=== PATIENT | female | born 1965 | race African-American/Black ===

== ENCOUNTER 2016-06-08 19:36 | Emergency (ER) | payer MEDICAID ==
[~2016-06-08] VITALS: Ht 167.6 cm; Wt 89.8 kg
[2016-06-08 20:38] VITALS: BP 107/72
--- NOTE | 2016-06-08 20:47 | Emergency Room Report ---
History of Present Illness General Chief Complaint: Upper Respiratory Illness Source: Patient Present Illness HPI 51 YO Female Pt. presents to the ED c/o productive cough x 3 weeks with intermittent fevers/chills, unresponsive to OTC cough and cold medications. Pt. reports ill- contacts denies recent travels, patient states she is up-to-date with vaccinations. Denies ill contacts and nursing facility to hospitals. Patient denies cardiac history history of asthma or COPD patient does not smoke. She denies abdominal pain or rashes. Patient reports rib cage pain exacerbated upon coughing in addition to headache that is exacerbated only with coughing. Patient denies dizziness, photophobia, changes in vision or blurry vision. Denies CP, Palpitations, LOC, AMS, dizziness, Changes in Vision, Sensation, paresthesias, or a sudden severe headache. Allergies: Coded Allergies: PEANUT (Verified Allergy, Unknown, 06/08/16) Patient History Past Medical History: see triage record Past Surgical History: none Pertinent Family History: none Now: No Immunizations: UTD Reviewed Nursing Documentation: PMH: Agreed, PSxH: Agreed Nursing Documentation-PMH Hx Asthma: Yes Review of Systems All Other Systems: negative except mentioned in HPI Physical Exam Vital Signs Date Time Temp Pulse Resp B/P Pulse Ox O2 Delivery O2 Flow Rate FiO2 06/08/16 20:30 98.1 68 16 107/72 97 Room Air Sp02 EP Interpretation: reviewed, normal General Appearance: no apparent distress, alert, GCS 15, non-toxic Head: normocephalic, atraumatic Eyes: bilateral eye PERRL, bilateral eye normal inspection ENT: hearing grossly normal, normal pharynx, no angioedema, normal voice Neck: full range of motion, supple/symm/no masses Respiratory: chest non-tender, crackles - right sided basilar crackles , remaining lung feilds are WNL, speaking full sentences Cardiovascular #1: regular rate, rhythm, no edema Gastrointestinal: normal bowel sounds, non tender, soft, no guarding, no rebound Rectal: deferred Genitourinary: normal inspection, no CVA tenderness Musculoskeletal: back normal, gait/station normal, normal range of motion, non- tender, no calf tenderness Neurologic: alert, oriented x3, responsive, motor strength/tone normal, sensory intact, speech normal Psychiatric: judgement/insight normal, memory normal, mood/affect normal, no suicidal/homicidal ideation Skin: normal color, no rash, warm/dry, well hydrated Lymphatic: no adenopathy Medical Decision Making PA Attestation Dr. Olivas is my supervising Physician whom patient management has been discussed with. Diagnostic Impression: Primary Impression: Atypical pneumonia ER Course Pt. presents to the ED c/o productive cough x 3 weeks with intermittent fevers/ chills, unresponsive to OTC cough and cold medications. -no cardiac hx. Ddx considered but are not limited to URI, pneumonia, PE, strep pharyngitis, meningitis. Vital signs: Pt. is afebrile, the remaining VS are WNL H&PE are most consistent with URI suspicious for pneumonia due to unilateral basilar crackles on PE. ORDERS: none required at this time, the diagnosis is clinical ED INTERVENTIONS: None required at this time. DISCHARGE: At this time pt. is stable for d/c to home. Will provide printed patient care instructions, and any necessary prescriptions. Care plan and follow up instructions have been discussed with the patient prior to discharge. Last Vital Signs Date Time Temp Pulse Resp B/P Pulse Ox O2 Delivery O2 Flow Rate FiO2 06/08/16 20:30 98.1 68 16 107/72 97 Room Air Disposition: HOME, SELF-CARE Condition: Stable Scripts Azithromycin* (ZITHROMAX*) 250 Mg Tablet 250 MG ORAL DAILY, #6 TAB 0 Refills Take two tables once daily for 1 day, then one tablet once daily for 4 days. Prov: Marci Stewart.A. 06/08/16 Albuterol Sulfate* (ALBUTEROL SULFATE MDI*) 8.5 Gm Hfa.aer.ad 2 PUFF INH Q3H, #1 INH 0 Refills Prov: Marci Stewart P.A. 06/08/16 Guaifenesin (Guaifenesin) 1,200 Mg Tab.er.12h 1200 MG PO BID for 10 Days, #20 TAB Prov: Marci Stewart P.A. 06/08/16 Codeine/Promethazine Hcl* (PROMETHAZINE-CODEINE SYRUP*) 118 Ml Syrup 5 ML ORAL Q6H Y for For Cough, #118 ML 0 Refills Prov: Marci StewartAVic 06/08/16 Referrals: [facility],REFERRING (PCP) Patient Instructions: Upper Respiratory Infection, Adult Additional Instructions: Take medications as directed. Follow up with PCP in 3-5 days Return sooner to ED if new symptoms occur, or current symptoms become worse. Do not drink alcohol, drive, or operate heavy machinery while taking Cough Syrup as this may cause drowsiness. - Please note that this Emergency Department Report was dictated using [employer]ell[employer] executive software sales technology software, occasionally this can lead to erroneous entry secondary to interpretation by the dictation equipment. Marci Stewart Jun 08, 2016 20:47
[2016-06-08] MEDS ORDERED: PROMETHAZINE-C118 M1 ORAL (21:20)
[2016-06-08] MEDS ORDERED: ALBUTEROL SULF8.5 GM INH (21:20)
[2016-06-08] MEDS ORDERED: ZITHROMAX250 MG ORAL (21:20)
[2016-06-08] MEDS ORDERED: GUAIFENESIN1200 MG PO (21:20)
[2016-06-08 21:33] VITALS: BP 107/72
== END 2016-06-08 21:33 | disposition home or self-care (01) ==
LOC: EMR 20:30
DX: J18.9 Pneumonia, unspecified organism (principal); Z91.010 Allergy to peanuts
CPT/HCPCS: 99284

== ENCOUNTER 2016-07-10 19:08 | Emergency (ER) | payer MEDICAID ==
[~2016-07-10] VITALS: Ht 167.6 cm; Wt 90.7 kg
[~2016-07-10 19:08] MED LIST: ALBUTEROL SULF8.5 GM INH; GUAIFENESIN1200 MG PO; PROMETHAZINE-C118 M1 ORAL; ZITHROMAX250 MG ORAL
[2016-07-10 19:30] VITALS: BP 110/60
[2016-07-10] MEDS ORDERED: NORCO 5-325 TA1 EAC1 ORAL (20:03)
[2016-07-10] MEDS ORDERED: IBUPROFEN600 MG ORAL (20:03)
--- NOTE | 2016-07-11 09:38 | Diagnostic Imaging Report ---
Indication: PAIN Technique: XRAY FOOT MIN 3V LEFT Comparison: None. Findings: There is fracture of the first proximal phalanx with extension into the interphalangeal joint. There may also be a small fracture of the base of the first distal phalanx. The remainder of the bones are intact. Impression: Fracture of the distal in the first proximal phalanx with extension into the interphalangeal joint. Possible slight chip fracture of the base of the first distal phalanx.
--- NOTE | 2016-07-12 14:07 | Emergency Room Report ---
History of Present Illness General Chief Complaint: Lower Extremity Injury Source: Patient Present Illness HPI The patient is a 51-year-old female presenting for pain of the left foot which began today. The patient states that she dropped a can of food onto the foot. Pain is described as an 8/10 dull ache and does not radiate from the left foot. She denies prior injury to this area. Pain is worse with touch. She has not taken any medications. She denies any other symptoms including numbness or tingling Allergies: Coded Allergies: PEANUT (Verified Allergy, Unknown, 06/08/16) Patient History Past Medical History: see triage record Pertinent Family History: none Now: No Reviewed Nursing Documentation: PMH: Agreed, PSxH: Agreed Nursing Documentation-PMH Hx Asthma: Yes Review of Systems All Other Systems: negative except mentioned in HPI Physical Exam Vital Signs Date Time Temp Pulse Resp B/P Pulse Ox O2 Delivery O2 Flow Rate FiO2 07/10/16 19:16 97.9 77 15 106/57 96 Room Air Sp02 EP Interpretation: reviewed, normal General Appearance: no apparent distress, alert, GCS 15, non-toxic Head: normocephalic, atraumatic Eyes: bilateral eye PERRL, bilateral eye normal inspection ENT: hearing grossly normal, normal pharynx, no angioedema, normal voice Musculoskeletal: decreased range of motion - L 1st toe, swelling, tender - TTP over L 1st and 2nd toes Neurologic: alert, oriented x3, responsive, motor strength/tone normal, sensory intact, speech normal, abnormal gait Psychiatric: judgement/insight normal, memory normal, mood/affect normal, no suicidal/homicidal ideation Skin: normal color, no rash, warm/dry, well hydrated Medical Decision Making PA Attestation Dr. Rogers is my supervising physician. Patient management was discussed with my supervising physician Diagnostic Impression: Primary Impression: Toe fracture, left Qualified Codes: S92.405A - Nondisplaced unspecified fracture of left great toe, initial encounter for closed fracture ER Course The patient is a 51-year-old female presenting for left foot pain Ddx considered include but not limited to sprain/strain, fracture, contusion Physical exam: vitals WNL. NAD Left foot: There is tenderness to palpation over the first and second digits overlying swelling. No ecchymosis. Limited active range of motion with toe extension and flexion. Sensation intact Patient walks with antalgic gait X-ray of the foot shows a fracture of the first digit A leny tape splint is placed and the patient is given crutches. She is discharged home with a prescription for pain medication and will follow up with PMD. ER precautions given Other X-Ray Diagnostic Results Other X-Ray Diagnostic Results : X-Ray Ordered: L foot Date: Jul 10, 2016 EP Interpretation: Yes Findings: no dislocation, other - fracture Number of Views: 3 PA Scribe Text I am acting as scribe for my supervising physician. My supervising physician's interpretation of the L foot xrays are there is a fracture of the 1st toe Radiology report: Fracture of the distal in the first proximal phalanx with extension into the interphalangeal joint. Possible slight chip fracture of the base of the first distal phalanx. Last Vital Signs Date Time Temp Pulse Resp B/P Pulse Ox O2 Delivery O2 Flow Rate FiO2 07/10/16 19:30 98.0 89 15 110/60 99 Room Air Status: improved Disposition: HOME, SELF-CARE Condition: Improved Scripts Hydrocodone Bit/Acetaminophen 5-325* (NORCO 5-325 TABLET*) 1 Each Tablet 1 TAB ORAL Q6HR Y for For Pain, #10 TAB Prov: CHANO SANTOS 07/10/16 Ibuprofen* (MOTRIN*) 600 Mg Tablet 600 MG ORAL Q8H Y for For Pain, #30 TAB 0 Refills Prov: CHANO SANTOS.A. 07/10/16 Referrals: NON PHYSICIAN (PCP) Patient Instructions: Toe Fracture Additional Instructions: I discussed my findings with the patient. All questions and concerns have been answered. Treatment and medication compliance have been addressed. I advised the patient that they need to follow up with PMD in 3-5 days. Return to ED if pain remains or worsens, numbness or tingling occurs, new rash is noticed, fever is noticed, or if needed for any reason. Patient verbalized understanding of discharge instructions. CHANO SANTOS Jul 12, 2016 14:07
== END 2016-07-10 20:15 | disposition home or self-care (01) ==
LOC: EMR 19:35
DX: S92.405A Nondisplaced unspecified fracture of left great toe, initial encounter for closed fracture (principal); J45.909 Unspecified asthma, uncomplicated; Z91.010 Allergy to peanuts; W20.8XXA Other cause of strike by thrown, projected or falling object, initial encounter; Y92.9 Unspecified place or not applicable; Y99.8 Other external cause status
CPT/HCPCS: 99283

== ENCOUNTER 2016-08-18 00:20 | Emergency (ER) | payer MEDICAID ==
[~2016-08-18] VITALS: Ht 167.6 cm; Wt 90.7 kg
[~2016-08-18 00:20] MED LIST changes: +IBUPROFEN600 MG ORAL; +NORCO 5-325 TA1 EAC1 ORAL
[2016-08-18] MEDS ORDERED: Ketorolac 30mg Inj IV ONE (00:45)
[2016-08-18 01:02] VITALS: BP 135/81
[2016-08-18 01:05] LABS: BASOPHILS % (AUTO) 0.7 % (0.0-2.0); LYMPHOCYTES % (AUTO) 53.8 % (20.0-45.0); MEAN CORPUSCULAR HEMOGLOBIN 30.2 PG (27.0-31.0); MEAN CORPUSCULAR HGB CONC 33.4 G/DL (32.0-36.0); MEAN CORPUSCULAR VOLUME 91 FL (80-99); MEAN PLATELET VOLUME 6.3 FL (6.5-10.1); MONOCYTES % (AUTO) 5.2 % (1.0-10.0); NEUTROPHILS % (AUTO) 37.3 % (45.0-75.0); PLATELET COUNT 187 K/UL (150-450); RED BLOOD COUNT 4.11 M/UL (4.20-5.40); RED CELL DISTRIBUTION WIDTH 12.1 % (11.6-14.8); WHITE BLOOD COUNT 5.8 K/UL (4.8-10.8)
[2016-08-18 01:24] LABS: ANION GAP 13 (5-15); CALCIUM 9.5 mg/dL (8.6-10.2); CARBON DIOXIDE 28 mEQ/L (20-30); CHLORIDE 101 mEQ/L (98-107); CREATININE 0.6 mg/dL (0.5-0.9); GLOMERULAR FILTRATION RATE > 60 mL/min (>60); HEMOLYSIS 2; SODIUM 142 mEQ/L (135-145)
[2016-08-18 01:28] LABS: TROPONIN I < 0.30 ng/mL (<=0.30)
[2016-08-18 01:57] VITALS: BP 109/72
[2016-08-18] MEDS ORDERED: IBUPROFEN600 MG ORAL (01:58)
--- NOTE | 2016-08-18 01:58 | Emergency Room Report ---
History of Present Illness General Chief Complaint: Upper Extremity Injury Source: Patient Present Illness HPI Is a 51-year-old female with no significant aspiration. She presents with chief complaint of upper back pain. Onset for last 2 days. She did work out the day before. She denied any pain. She woke up with sharp pain between her scapula. Worse with movement. Worse with inspiration. Worse with coughing. Denies any chest pain. No radiation. Pain is 9/10 sharp in nature. Allergies: Coded Allergies: PEANUT (Verified Allergy, Unknown, 06/08/16) Patient History Past Medical History: see triage record, old chart reviewed Past Surgical History: none Pertinent Family History: none Social History: Denies: smoking Last Menstrual Period: NONE Now: No Immunizations: other Reviewed Nursing Documentation: PMH: Agreed, PSxH: Agreed Nursing Documentation-PMH Hx Asthma: Yes Review of Systems Eye: Denies: blurred vision, eye pain ENT: Denies: ear pain, nose congestion, throat swelling Respiratory: Denies: cough, shortness of breath Cardiovascular: Denies: chest pain, palpitations Gastrointestinal: Denies: abdominal pain, diarrhea, nausea, vomiting Musculoskeletal: Reports: back pain, Denies: joint pain Skin: Denies: rash Neurological: Denies: headache, numbness Endocrine: Denies: increased thirst, increased urine Hematologic/Lymphatic: Denies: easy bruising All Other Systems: negative except mentioned in HPI Physical Exam Vital Signs Date Time Temp Pulse Resp B/P Pulse Ox O2 Delivery O2 Flow Rate FiO2 08/18/16 00:24 97.9 69 18 135/81 97 Room Air vitals normal Sp02 EP Interpretation: reviewed, normal General Appearance: well appearing, no apparent distress, alert Head: normocephalic, atraumatic Eyes: bilateral eye EOMI, bilateral eye PERRL ENT: hearing grossly normal, normal pharynx Neck: full range of motion, supple, no meningismus Respiratory: chest non-tender, lungs clear, normal breath sounds Cardiovascular #1: regular rate, rhythm, no murmur Gastrointestinal: normal bowel sounds, non tender, no mass, no organomegaly, no bruit, non-distended Musculoskeletal: back normal, gait/station normal, normal range of motion Psychiatric: mood/affect normal Skin: warm/dry Medical Decision Making Diagnostic Impression: Primary Impression: Strain of thoracic region Qualified Codes: S29.019A - Strain of muscle and tendon of unspecified wall of thorax, initial encounter ER Course Patient with a strain/pain to the upper thoracic region. Notice of PE, dissection, ACS, pneumonia, pneumothorax name a few. She is pain-free now. We' ll discharge home. Lab Results Impression labs are remarkable Rhythm Strip Diag. Results EP Interpretation: yes Rate: 69 Rhythm: NSR, no PVC's, no ectopy Chest X-Ray Diagnostic Results EP Interpretation: Yes Findings: no consolidation, no effusion, no pneumothorax, no acute cardiopulmonary disease Number of Views: 1 Last Vital Signs Date Time Temp Pulse Resp B/P Pulse Ox O2 Delivery O2 Flow Rate FiO2 08/18/16 01:02 97.9 89 18 135/81 97 Room Air Status: improved Disposition: HOME, SELF-CARE Condition: Stable Scripts Ibuprofen* (MOTRIN*) 600 Mg Tablet 600 MG ORAL THREE TIMES A DAY, #30 TAB 0 Refills Prov: KATIE BATEMAN M.D. 08/18/16 Referrals: [facility],REFERRING (PCP) Additional Instructions: Followup with your in 2-3 days. Return if worse. KATIE BATEMAN M.D. August 18, 2016 01:58
--- NOTE | 2016-08-18 10:46 | Diagnostic Imaging Report ---
Indication: Chest Pain Comparison: None A single view chest radiograph was obtained. Findings: Cardiomediastinal appearance is within normal limits for age. Pulmonary vascularity is appropriate. The diaphragmatic contour is smooth and costophrenic angles are sharp. No pleural effusions are identified. The bones are unremarkable. Impression: No acute findings
== END 2016-08-18 01:57 | disposition home or self-care (01) ==
LOC: EMR 01:40
DX: S29.012A Strain of muscle and tendon of back wall of thorax, initial encounter (principal); X50.9XXA Other and unspecified overexertion or strenuous movements or postures, initial encounter; Y92.89 Other specified places as the place of occurrence of the external cause; J45.909 Unspecified asthma, uncomplicated; Z91.010 Allergy to peanuts
CPT/HCPCS: 36415; 71010; 80048; 84484; 85025; 85379; 96374; 99284; J1885

== ENCOUNTER 2017-04-11 10:38 | Emergency (ER) | payer MEDICAID ==
[~2017-04-11] VITALS: Ht 165.1 cm; Wt 88.5 kg
--- NOTE | 2017-04-11 11:07 | Emergency Room Report ---
History of Present Illness General Chief Complaint: General Complaint Source: Patient Present Illness HPI 52-year-old female with 2 complaints 1: 2 weeks of dry cough. No associated fever chills or chest pain. History of asthma, has been using her inhaler as needed for cough. 2: Patient fell last night, fell backwards brace herself with fall on outstretched right hand, complaining of pain to ulnar aspect of right wrist with reduced range of motion due to pain. Patient placed Bala bandage on wrist and took naproxen. On pronation supination increased pain to right wrist and forearm just distal to elbow. No other trauma from fall. Allergies: Coded Allergies: PEANUT (Verified Allergy, Unknown, 06/08/16) Patient History Past Medical History: asthma Past Surgical History: none Pertinent Family History: none Social History: Denies: smoking, alcohol use, drug use Now: No Immunizations: UTD Reviewed Nursing Documentation: PMH: Agreed, PSxH: Agreed Nursing Documentation-PMH Hx Asthma: Yes Review of Systems All Other Systems: negative except mentioned in HPI Physical Exam Vital Signs Date Time Temp Pulse Resp B/P (MAP) Pulse Ox O2 Delivery O2 Flow Rate FiO2 04/11/17 10:48 98.8 99 20 128/65 100 Room Air Sp02 EP Interpretation: reviewed, normal General Appearance: normal inspection, well appearing, no apparent distress, alert, GCS 15, non-toxic Head: normocephalic, atraumatic Eyes: bilateral eye PERRL, bilateral eye EOMI ENT: normal ENT inspection, hearing grossly normal, normal pharynx, no angioedema, normal voice, TMs + canals normal, uvula midline, moist mucus membranes Neck: normal inspection, full range of motion, supple, thyroid normal, no meningismus, no bony tend Respiratory: normal inspection, lungs clear, normal breath sounds, no rhonchi, no respiratory distress, no retraction, no accessory muscle use, no wheezing, speaking full sentences Cardiovascular #1: regular rate, rhythm, no edema, no JVD, normal capillary refill Gastrointestinal: normal inspection, normal bowel sounds, non tender, soft, no mass, no peritonitis, non-distended, no guarding, no hernia, no pulsatile mass Genitourinary: no CVA tenderness Musculoskeletal: normal inspection, back normal, normal range of motion, no calf tenderness, pelvis stable, Nigel's Sign negative, other - Right wrist: obvious swelling and deformity to distal wrist at ulnar aspect. Reduced range of motion due to pain. Pain to proximal forearm below elbow on pronation supination. Neurologic: normal inspection, alert, oriented x3, responsive, advertising designer III-XII nml as tested, motor strength/tone normal, cerebellar normal, normal gait, speech normal Psychiatric: normal inspection, judgement/insight normal, mood/affect normal, no suicidal/homicidal ideation, no delusions Skin: normal inspection, normal color, no rash Lymphatic: normal inspection, no adenopathy Procedures Splinting Splinting : Consent: Verbal Pre-Made Type: velcro Splint: volar Pre-Proc Neuro Vasc Exam: normal Post-Proc Neuro Vasc Exam: normal Patient Tolerated: Well Complications: None Medical Decision Making Diagnostic Impression: Primary Impression: Cough Additional Impressions: Right wrist pain Fall Qualified Codes: W19.XXXA - Unspecified fall, initial encounter Triquetral chip fracture Qualified Codes: S62.111A - Displaced fracture of triquetrum [cuneiform] bone , right wrist, initial encounter for closed fracture ER Course 2 weeks of cough likely subacute bronchitis. Lungs clear to auscultation, afebrile. Low suspicion for pneumonia at this point. refill patient's Ventolin prescription. Right wrist pain after traumatic fall. X-ray: Acute triquetral fracture- patient placed in a volar splint with slight extension. Advise close orthopedics followup, pain medication as needed, ice. ER course: Patient has remained stable during ED stay. Disposition: Patient is to be discharged to home. Prescriptions given are ventolin, Tylenol #3 Patient is instructed to follow up with their primary care doctor within 5 days. Patient is instructed to follow up with hand surgeon in 7 days Strict return precautions discussed with patient such as fever, chills, worsening/severe pain, nausea, vomiting, which may indicate severe illness. Patient verbalizes understanding and agrees with plan. Please note that this Emergency Department Report was dictated using [employer] conditioning installer technology software, occasionally this can lead to erroneous entry secondary to interpretation by the dictation equipment Last Vital Signs Date Time Temp Pulse Resp B/P (MAP) Pulse Ox O2 Delivery O2 Flow Rate FiO2 04/11/17 10:48 98.8 99 20 128/65 100 Room Air Status: improved Disposition: HOME, SELF-CARE ANEL BRADFORD M.D. Apr 11, 2017 11:07
--- NOTE | 2017-04-11 11:47 | Diagnostic Imaging Report ---
Indication: Pain Technique: XRAY Wrist Complete R Comparison: None Findings: Small bony fragment located dorsally seen only on lateral views most likely representing a small avulsion fracture of the triquetrum. No additional fracture identified. Alignment of the carpal bones appears anatomic. There is mild overlying soft tissue swelling. No radiopaque foreign body seen. Impression: Triquetral fracture with overlying soft tissue swelling.
--- NOTE | 2017-04-11 11:49 | Diagnostic Imaging Report ---
Indication: Pain status post fall Technique: XRAY Forearm 2v R Comparison: Correlation made to concurrent wrist radiographs Findings: Small bony fragment projecting dorsally at the level of the wrist compatible with the triquetral avulsion fracture. No forearm fracture. Elbow joint and wrist articulations appear grossly preserved. No radiopaque foreign body seen. Impression: Triquetral fracture. No additional fracture identified.
[2017-04-11] MEDS ORDERED: ACETAMINOPHEN-1 EAC1 ORAL (11:53)
[2017-04-11] MEDS ORDERED: VENTOLIN HFA18 GM INH (11:53)
[2017-04-11 12:03] VITALS: BP 130/80
[2017-04-11 12:04] VITALS: BP 128/65
== END 2017-04-11 12:04 | disposition home or self-care (01) ==
LOC: EMR 11:44
DX: S62.111A Displaced fracture of triquetrum [cuneiform] bone, right wrist, initial encounter for closed fracture (principal); R05 Cough; J45.909 Unspecified asthma, uncomplicated; Z91.010 Allergy to peanuts; W18.30XA Fall on same level, unspecified, initial encounter; Y92.9 Unspecified place or not applicable
CPT/HCPCS: 99284

== ENCOUNTER 2017-07-26 19:53 | Emergency (ER) | payer MEDICAID ==
[~2017-07-26] VITALS: Ht 167.6 cm; Wt 88.5 kg
[~2017-07-26 19:53] MED LIST changes: +ACETAMINOPHEN-1 EAC1 ORAL; +VENTOLIN HFA18 GM INH
[2017-07-26] MEDS ORDERED: Sodium Chloride 500ML 500 ML IV ONE (19:58)
[2017-07-26] MEDS ORDERED: Solu-MEDROL 125mg Inj IVP ONE (20:00)
[2017-07-26] MEDS ORDERED: Ipratropium 0.02% Inh Soln 2.5ml UD HHN ONE (20:00)
[2017-07-26] MEDS ORDERED: Albuterol ud Inhalation HHN ONE ×2 (20:00→21:15)
[2017-07-26 20:18] VITALS: BP 138/81
[2017-07-26 20:27] LABS: BASOPHILS % (AUTO) 1.5 % (0.0-2.0); EOSINOPHILS % (AUTO) 1.6 % (0.0-3.0); HEMATOCRIT 40.8 % (37.0-47.0); HEMOGLOBIN 14.1 G/DL (12.0-16.0); LYMPHOCYTES % (AUTO) 38.4 % (20.0-45.0); MEAN CORPUSCULAR VOLUME 90 FL (80-99); MONOCYTES % (AUTO) 5.7 % (1.0-10.0); NEUTROPHILS % (AUTO) 52.9 % (45.0-75.0); PLATELET COUNT 221 K/UL (150-450); RED BLOOD COUNT 4.53 M/UL (4.20-5.40); RED CELL DISTRIBUTION WIDTH 12.6 % (11.6-14.8); WHITE BLOOD COUNT 6.5 K/UL (4.8-10.8)
[2017-07-26 20:41] LABS: ANION GAP 11 mmol/L (5-15); BLOOD UREA NITROGEN 16 mg/dL (7-18); CARBON DIOXIDE 25 MMOL/L (21-32); CHLORIDE 106 MMOL/L (98-107); CREATININE 0.8 MG/DL (0.55-1.30); POTASSIUM 4.1 MMOL/L (3.5-5.1); SODIUM 142 MMOL/L (136-145)
[2017-07-26] MEDS ORDERED: Albuterol/Ipratropium 3ml neb HHN ONE (20:45)
[2017-07-26 20:55] LABS: ALANINE AMINOTRANSFERASE 16 U/L (12-78); ALBUMIN 4.7 G/DL (3.4-5.0); ALBUMIN/GLOBULIN RATIO 1.1 (1.0-2.7); ALKALINE PHOSPHATASE 75 U/L (46-116); ASPARTATE AMINO TRANSFERASE 19 U/L (15-37); BILIRUBIN,TOTAL 0.4 MG/DL (0.2-1.0); CKMB 0.6 NG/ML (0.0-3.6); CREATINE KINASE 112 U/L (26-308)
[2017-07-26] MEDS ORDERED: PREDNISONE20 M1 PO (21:08)
[2017-07-26] MEDS ORDERED: ALBUTEROL SULF8.5 GM INH (21:09)
[2017-07-26 21:18] VITALS: BP 113/89
[2017-07-26 21:33] VITALS: BP 114/88
--- NOTE | 2017-07-27 12:01 | Emergency Room Report ---
History of Present Illness General Chief Complaint: Dyspnea/Respdistress Present Illness HPI Patient is a 52-year-old female who presented after increased difficulty breathing. Patient gradual onset of symptoms over the past few days. Patient prior to having increased nasal congestion as well as nonproductive cough. She had previous history of bronchitis. She denies being a smoker. She had been using albuterol at home. She appears that been on steroids but does not currently have steroids at home. The patient denies any chest or abdominal pain. Allergies: Coded Allergies: PEANUT (Verified Allergy, Unknown, 06/08/16) Patient History Past Medical History: see triage record Past Surgical History: unable to obtain Pertinent Family History: unable to obtain Nursing Documentation-PMH Hx Asthma: Yes Review of Systems All Other Systems: negative except mentioned in HPI Physical Exam Vital Signs Date Time Temp Pulse Resp B/P (MAP) Pulse Ox O2 Delivery O2 Flow Rate FiO2 07/26/17 19:58 98.3 113 28 132/84 91 Room Air 98.2 07/26/17 20:03 3.0 32 Sp02 EP Interpretation: reviewed, normal General Appearance: normal inspection, well appearing, no apparent distress, alert, GCS 15, non-toxic Head: atraumatic ENT: normal ENT inspection, hearing grossly normal, normal voice Neck: normal inspection, full range of motion, supple, no bony tend Respiratory: normal inspection, no respiratory distress, no retraction, wheezing Cardiovascular #1: regular rate, rhythm, no edema Gastrointestinal: normal inspection, normal bowel sounds, non tender, soft, no guarding, no hernia Genitourinary: no CVA tenderness Musculoskeletal: normal inspection, back normal, normal range of motion Neurologic: normal inspection, alert, oriented x3, responsive, secretary to [employer] III-XII nml as tested, speech normal Psychiatric: normal inspection, judgement/insight normal, mood/affect normal Skin: normal inspection, normal color, no rash Medical Decision Making Diagnostic Impression: Primary Impression: Bronchitis ER Course Patient was sent for cough. Differential diagnosis included but was not limited to bronchitis, pneumonia, pulmonary embolism, pericarditis, asthma, foreign body. Patient has a benign exam and does not appear to require any further imaging or laboratory testing at this time. Patient was given IV Solu- Medrol as well as breathing treatments with gradual improvement. The time of discharge patient was moving air well. The patient is advised to return if she began having increased difficulty breathing productive cough or other concerns. Last Vital Signs Date Time Temp Pulse Resp B/P (MAP) Pulse Ox O2 Delivery O2 Flow Rate FiO2 07/26/17 21:33 98.1 98 25 114/88 97 Room Air 07/26/17 21:18 2.0 28 Status: improved Disposition: HOME, SELF-CARE Condition: Stable Scripts Albuterol Sulfate* (ALBUTEROL SULFATE MDI*) 8.5 Gm Hfa.aer.ad 2 PUFF INH Q4H, #1 INH 0 Refills Prov: Juvencio Rogers 07/26/17 Prednisone (Prednisone) 20 Mg Tablet 20 MG PO DAILY, #15 TAB Prov: Juvencio Rogers 07/26/17 Patient Instructions: Acute Bronchitis Juvencio Rogers July 27, 2017 12:01
--- NOTE | 2017-07-27 15:45 | Cardiology Report ---
APPROVED REPORT EKG Measurement Heart [id number] Sinus tachycardia Possible Left atrial enlargement Borderline ECG
--- NOTE | 2017-07-28 14:15 | Diagnostic Imaging Report ---
Indication: Dyspnea Comparison: 08/18/2016 A single view chest radiograph was obtained. Findings: Cardiomediastinal appearance is within normal limits for age. Pulmonary vascularity is appropriate. The diaphragmatic contour is smooth and costophrenic angles are sharp. No pleural effusions are identified. The bones are unremarkable. Impression: No acute findings
== END 2017-07-26 21:00 | disposition home or self-care (01) ==
LOC: EMR 20:00
DX: J45.909 Unspecified asthma, uncomplicated (principal); Z91.010 Allergy to peanuts
CPT/HCPCS: 36415; 71045; 80053; 82550; 82553; 83880; 84484; 85025; 93005; 94640; 94664; 96361; 96374; 99284; J2930; J7040; J7620

== ENCOUNTER 2017-12-06 09:20 | Emergency (ER) | payer MEDICAID ==
[~2017-12-06] VITALS: Ht 167.6 cm; Wt 90.7 kg
[~2017-12-06 09:20] MED LIST changes: +LEVOFLOXAC500 MG/100 ORAL; +NAPROXEN375 M2 ORAL; +PREDNISONE10 MG ORAL; +PREDNISONE20 M1 PO; +PREDNISONE20 MG ORAL; +TRAMADOL HCL50 MG ORAL
[2017-12-06] MEDS ORDERED: Norco 5mg/325mg tab ORAL ONE (09:45)
[2017-12-06] MEDS ORDERED: NORCO 5-325 TA1 EACH ORAL (10:55)
[2017-12-06 11:16] VITALS: BP 139/93
--- NOTE | 2017-12-06 11:34 | Diagnostic Imaging Report ---
Indication: Knee Pain 3 views of the left knee were obtained. Findings: There is no fracture or malalignment appreciated. There is a probable small joint effusion. Mild narrowing of the joint space may be present. IMPRESSION: No acute bony injury appreciated. Probable joint effusion
--- NOTE | 2017-12-06 14:13 | Emergency Room Report ---
History of Present Illness General Chief Complaint: Lower Extremity Injury Source: Patient Present Illness HPI Patient presents emergency department today complaining of left knee pain. Patient states that she strained her left knee accidentally yesterday and she has had pain in her left knee since. She has some swelling her left knee with pain limits her range of motion difficulty bearing weight which is why she came here for further evaluation. No other injuries are noted. No other modifying factors. No other associated signs and symptoms. No other complaints were noted. Allergies: Coded Allergies: PEANUT (Verified Allergy, Unknown, 06/08/16) Patient History Past Medical History: none Past Surgical History: none Pertinent Family History: none Social History: Denies: smoking, alcohol use, drug use Last Menstrual Period: 2003 Reviewed Nursing Documentation: PMH: Agreed; PSxH: Agreed Nursing Documentation-PMH Past Medical History: No History, Except For Hx Asthma: Yes Review of Systems All Other Systems: negative except mentioned in HPI Physical Exam Vital Signs Date Time Temp Pulse Resp B/P (MAP) Pulse Ox O2 Delivery O2 Flow Rate FiO2 12/06/17 09:24 98.0 77 16 139/93 96 Room Air 98.1 Sp02 EP Interpretation: reviewed, normal General Appearance: normal inspection, well appearing, no apparent distress, alert Head: atraumatic Eyes: bilateral eye normal inspection ENT: normal ENT inspection, hearing grossly normal, normal voice Neck: normal inspection, full range of motion, supple, no bony tend Respiratory: normal inspection, lungs clear, normal breath sounds, no respiratory distress, no retraction, no wheezing Cardiovascular #1: regular rate, rhythm, no edema Gastrointestinal: normal inspection, normal bowel sounds, non tender, soft, no guarding, no hernia Genitourinary: no CVA tenderness Musculoskeletal: back normal, swelling - tender left knee, pain limits her range of motion Neurologic: normal inspection, alert, responsive, speech normal Psychiatric: normal inspection, judgement/insight normal, mood/affect normal Skin: normal inspection, normal color, no rash Procedures Splinting Splinting : Consent: Verbal Location: left knee Pre-Made Type: BALA wrap Pre-Proc Neuro Vasc Exam: normal Post-Proc Neuro Vasc Exam: normal Patient Tolerated: Well Complications: None Medical Decision Making Diagnostic Impression: Primary Impression: Strain of knee and leg, left ER Course Patient presents emergency department today complaint left knee pain. Differential considerations include fracture dislocation versus strain. Patient 's exam showed benign other than the slightly swollen knee. I felt that x-rays are indicated. X-rays was noted to be negative. The patient was placed in Bala bandage and crutches. I feel the patient likely strained her knee she was given pain medications recommend outpatient follow-up. She was advised that if it does not improve that she would need MRI. Patient voiced understanding.Patient is advised to follow up with primary doctor in 2-3 days and return the emergency room for any worsening symptoms and as needed. Other X-Ray Diagnostic Results Other X-Ray Diagnostic Results : X-Ray ordered: left knee x-ra # of Views/Limited Vs Complete: 2 View Indication: Pain EP Interpretation: No Impression: No acute disease Last Vital Signs Date Time Temp Pulse Resp B/P (MAP) Pulse Ox O2 Delivery O2 Flow Rate FiO2 12/06/17 11:16 98.0 16 139/93 96 Room Air 98.0 12/06/17 09:24 77 Status: improved Disposition: HOME, SELF-CARE Condition: Stable Scripts Hydrocodone Bit/Acetaminophen 5-325* (NORCO 5-325*) 1 Each Tablet 1 TAB ORAL Q6H PRN for For Pain, #10 TAB 0 Refills Prov: Yakov Kim MD 12/06/17 Departure Forms: Return to Work Return to Work Date: Dec 14, 2017 Patient Instructions: Knee Pain, Crutch Use, [id number], Knee Sprain, Easy-to -Read Yakov Kim MD Dec 06, 2017 14:13
== END 2017-12-06 11:19 | disposition home or self-care (01) ==
LOC: EMR 09:40
DX: S86.912A Strain of unspecified muscle(s) and tendon(s) at lower leg level, left leg, initial encounter (principal); X58.XXXA Exposure to other specified factors, initial encounter; Y93.9 Activity, unspecified; Y92.9 Unspecified place or not applicable; J45.909 Unspecified asthma, uncomplicated
CPT/HCPCS: 99283

== ENCOUNTER 2018-11-04 13:35 | Emergency (ER) | payer MEDICAID ==
[~2018-11-04] VITALS: Ht 167.6 cm; Wt 88.5 kg
[~2018-11-04 13:35] MED LIST changes: +NORCO 5-325 TA1 EACH ORAL
[2018-11-04 13:44] VITALS: BP 129/80
[2018-11-04] MEDS ORDERED: KENALOG 0.025%15 GM TOPIC (13:58)
[2018-11-04] MEDS ORDERED: CETIRIZINE HCL10 MG PO (14:00)
[2018-11-04] MEDS ORDERED: CEPHALEXIN500 M1 ORAL (14:01)
[2018-11-04 14:13] VITALS: BP 129/80
--- NOTE | 2018-11-04 14:26 | Emergency Room Report ---
History of Present Illness General Chief Complaint: Animal Bite Source: Patient Present Illness HPI 53-year-old female complaining of left upper arm insect bite x3 days. Pain is 3 out of 10, burning. No aggravating/relieving factors. Denies fever, numbness, upper extremity weakness, SOB, chest pain, lip/tongue swelling, eye swelling, vomiting, diarrhea, abdominal pain. Allergies: Coded Allergies: PEANUT (Verified Allergy, Unknown, 06/08/16) Patient History Past Medical History: none Past Surgical History: other - wrist surgery Social History: Denies: smoking, alcohol use, drug use Nursing Documentation-[facility] Past Medical History: No History, Except For Hx Asthma: Yes Review of Systems All Other Systems: negative except mentioned in HPI Physical Exam Vital Signs Date Time Temp Pulse Resp B/P (MAP) Pulse Ox O2 Delivery O2 Flow Rate FiO2 11/04/18 13:44 98.2 77 18 129/80 (96) 97 Room Air Sp02 EP Interpretation: reviewed, normal General Appearance: no apparent distress, alert, GCS 15, non-toxic ENT: hearing grossly normal, normal pharynx, no angioedema, normal voice Respiratory: chest non-tender, lungs clear, normal breath sounds, speaking full sentences Cardiovascular #1: regular rate, rhythm, no edema Musculoskeletal: normal range of motion - , 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 Skin: rash - 2 erythematous papules, with central punctum and slight edema. no drainage. Lymphatic: normal inspection, other - , no streaking. Medical Decision Making PA Attestation This patient was seen under the direct supervision of Dr. Jain who directed all aspects of care and diagnostic interpretation. Diagnostic Impression: Primary Impression: Insect bite of left upper arm Qualified Codes: S40.862A - Insect bite (nonvenomous) of left upper arm, initial encounter; W57.XXXA - Bitten or stung by nonvenomous insect and other nonvenomous arthropods, initial encounter ER Course ED course HPI: 53-year-old female complaining of left upper arm insect bite x3 days. Pain is 3 out of 10, burning with itchiness. No aggravating/relieving factors. Denies fever, numbness, upper extremity weakness, SOB, chest pain, lip/tongue swelling, eye swelling, vomiting, diarrhea, abdominal pain. Patient is well-appearing, nontoxic in appearance. Speaking in full sentences without respiratory distress. Vitals are normal, afebrile. On patient's left upper extremity, there are 2 papules with central punctum, neurovascular intact with 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 No streaking. Ddx: Insect bite vs. cellulitis vs. abscess HPI & PE consistent with: Insect bite, left upper extremity. Orders/ Interventions: None Disposition: Patient is stable for discharge home. Prescription for triamcinolone 0.1% cream, cetirizine and cephalexin 500mg BID X 1 week given. Avoid scratching area. Apply ice pack to affected area. Patient advised to start antibiotic in 2 days if worsening redness, swelling, pain or discharge from affected area. Followup with PCP in 2 days or return to ED if worsening symptoms, new symptoms or sudden change in condition. Please note that this Emergency Department Report was dictated using [employer] control technician technology software, occasionally this can lead to erroneous entry secondary to interpretation by the dictation equipment. Last Vital Signs Date Time Temp Pulse Resp B/P (MAP) Pulse Ox O2 Delivery O2 Flow Rate FiO2 11/04/18 14:13 98.2 77 18 129/80 97 Room Air Disposition: HOME, SELF-CARE Condition: Stable Scripts Cephalexin* (CEPHALEXIN*) 500 Mg Tablet 500 MG ORAL EVERY 12 HOURS for 7 Days, #14 CAP Prov: Bruno Whitehead 11/04/18 Cetirizine Hcl (CETIRIZINE HCL) 10 Mg Tablet 10 MG PO DAILY for allergy, #10 TAB Prov: Bruno Whitehead 11/04/18 Triamcinolone Acet (Triamcinolone Acetonide) 15 Gm Cream..g. 1 APPLIC TOPIC BID for 7 Days, #30 GM Prov: Bruno Whitehead 11/04/18 Referrals: [facility],REFERRING (PCP) Patient Instructions: Insect Bite, [id number] Additional Instructions: Take medication as prescribed. Avoid scratching area. Follow-up with PCP in 2 days or return to ER if worsening symptoms, new symptoms or sudden change in condition. Bruno Whitehead Nov 04, 2018 14:26
== END 2018-11-04 14:13 | disposition home or self-care (01) ==
LOC: EMR 14:04
DX: S40.862A Insect bite (nonvenomous) of left upper arm, initial encounter (principal); J45.909 Unspecified asthma, uncomplicated; Z91.010 Allergy to peanuts; W57.XXXA Bitten or stung by nonvenomous insect and other nonvenomous arthropods, initial encounter; Y92.9 Unspecified place or not applicable
CPT/HCPCS: 99282

== ENCOUNTER 2019-04-15 07:22 | Emergency (ER) | payer MEDICAID ==
[~2019-04-15] VITALS: Ht 167.6 cm; Wt 2.3 kg
[~2019-04-15 07:22] MED LIST changes: +CEPHALEXIN500 M1 ORAL; +CETIRIZINE HCL10 MG PO; +KENALOG 0.025%15 GM TOPIC
--- NOTE | 2019-04-15 07:32 | NUR ---
ED Nurse Note: Pt ambulated to ED with c/o RT shoulder pain with 10/10 pain scale and tingling sensation on RT hand. Pt is AOx4, calm and cooperative. VSS, on RA. Placed on bed.
[2019-04-15 07:34] VITALS: BP 101/61
--- NOTE | 2019-04-15 07:43 | NUR ---
ED Nurse Note: ERMD on bedside.
[2019-04-15] MEDS ORDERED: Acetaminophen 500mg (ES) tab ORAL ONE (08:00)
--- NOTE | 2019-04-15 08:05 | NUR ---
ED Nurse Note: Called radiology.
--- NOTE | 2019-04-15 08:26 | NUR ---
ED Nurse Note: X-ray on bedside.
[2019-04-15] MEDS ORDERED: TYLENOL EXTRA500 MG ORAL (08:54)
[2019-04-15] MEDS ORDERED: LIDODERM700 M1 TOPIC (08:54)
[2019-04-15] MEDS ORDERED: ROBAXIN-750750 MG PO (08:54)
[2019-04-15 09:02] VITALS: BP 100/62
--- NOTE | 2019-04-15 09:02 | NUR ---
ER DISCHARGE NOTE: Pt is cleared to be discharged per ERMD, pt is aox4, on room air, with stable vital signs. pt was given dc and prescription instructions, pt was able to verbalize understanding, pt id band removed. pt is able to ambulate with steady gait. pt took all belongings.
--- NOTE | 2019-04-15 09:12 | Diagnostic Imaging Report ---
EXAM: XR Right Shoulder Complete, 2 or More Views CLINICAL HISTORY: PAIN TECHNIQUE: Two or more views of the right shoulder. COMPARISON: No relevant prior studies available. FINDINGS: Bones/joints: Unremarkable. No acute fracture. No dislocation. Soft tissues: Unremarkable. IMPRESSION: Normal right shoulder x-rays.
--- NOTE | 2019-04-15 09:47 | Emergency Room Report ---
History of Present Illness General Chief Complaint: Pain Source: Patient Present Illness HPI 54-year-old female presents ED for evaluation. Complaining of right shoulder and arm pain. Started 2 weeks ago after waking up 1 morning. Notes tingling sensation down the right arm. Pain is sharp, 8 out of 10. Worse with abduction. Denies chest pain or shortness of breath. Denies neck pain. No other aggravating relieving factors. Denies any other associated symptoms Allergies: Coded Allergies: PEANUT (Verified Allergy, Unknown, 06/08/16) Patient History Past Medical History: asthma Past Surgical History: none Pertinent Family History: none Social History: Denies: smoking, alcohol use, drug use Last Menstrual Period: MENOPAUSAL Now: No Immunizations: UTD Reviewed Nursing Documentation: PMH: Agreed; PSxH: Agreed Nursing Documentation-PMH Past Medical History: No History, Except For Hx Asthma: Yes Review of Systems All Other Systems: negative except mentioned in HPI Physical Exam Vital Signs Date Time Temp Pulse Resp B/P (MAP) Pulse Ox O2 Delivery O2 Flow Rate FiO2 04/15/19 07:27 98.1 91 20 101/61 (74) 95 Room Air Sp02 EP Interpretation: reviewed, normal General Appearance: no apparent distress, alert, GCS 15, non-toxic Head: normocephalic Eyes: bilateral eye normal inspection, bilateral eye PERRL ENT: normal ENT inspection Neck: full range of motion, supple, no meningismus, no bony tend, supple/symm/ no masses Respiratory: chest non-tender, lungs clear, normal breath sounds, speaking full sentences Cardiovascular #1: regular rate, rhythm, no edema Gastrointestinal: normal inspection Rectal: deferred Genitourinary: no CVA tenderness Musculoskeletal: back normal, normal range of motion, gait/station normal, tender - R shoulder, other - pain with abduction Neurologic: alert, motor strength/tone normal, oriented x3, sensory intact, responsive, speech normal Psychiatric: normal inspection Skin: no rash Lymphatic: normal inspection Procedures Splinting Splinting : Consent: Verbal Pre-Made Type: sling Pre-Proc Neuro Vasc Exam: normal Post-Proc Neuro Vasc Exam: normal Patient Tolerated: Well Complications: None Medical Decision Making Diagnostic Impression: Primary Impression: Shoulder injury Qualified Codes: S49.91XA - Unspecified injury of right shoulder and upper arm , initial encounter ER Course Hospital Course 54-year-old F presents to ED complaining of R shoulder pain Differential diagnoses include: Fracture, dislocation, sprain, contusion Clinical course Patient placed on stretcher. After initial history and physical, I ordered pain medications and Xrays of R shoulder Xrays read shows no acute fracture/dislocation. Discussed findings with patient. Placed in shoulder sling. Pain is likely muscular, tendinitis. Recommend conservative therapy with anti-inflammatories, modified activity. Safe for discharge close outpatient follow-up. I will provide referrals Diagnosis - shoulder injury Stable and discharged to home with prescription for Tylneol, Robaxin, lidoderm. weight bear as tolerated. Followup with PMD. Return to ED if symptoms recur or worsen Other X-Ray Diagnostic Results Other X-Ray Diagnostic Results : X-Ray ordered: R shoulder # of Views/Limited Vs Complete: 3 View Indication: Pain EP Interpretation: Yes Interpretation: no dislocation, no soft tissue swelling, no fractures Impression: No acute disease Electronically Signed by: Electronically signed by Levi Stephens MD Last Vital Signs Date Time Temp Pulse Resp B/P (MAP) Pulse Ox O2 Delivery O2 Flow Rate FiO2 04/15/19 09:02 98.1 70 20 100/62 99 Room Air Status: improved Disposition: HOME, SELF-CARE Condition: Stable Scripts Lidocaine Patch* (Lidoderm Patch*) 1 Each Adh..patch 1 PATCH TOPIC DAILY, #7 PATCH 0 Refills Patch(es) may remain in place for up to 12 hours in any 24-hour period. Prov: Levi Stephens MD 04/15/19 Methocarbamol* (ROBAXIN-750*) 750 Mg Tablet 750 MG PO TID, #21 TAB 0 Refills Prov: Levi Stephens MD 04/15/19 Acetaminophen* (TYLENOL EXTRA STRENGTH*) 500 Mg Tablet 500 MG ORAL Q8H PRN for Prn Headache/Temp > 101, #30 TAB 0 Refills Prov: Levi Stephens MD 04/15/19 Referrals: NON PHYSICIAN (PCP) Iban Ayala [facility]. [facility] Open 24 hour /7 days a week by Appointment Only [address] [facility] [address] [address] Departure Forms: Return to Work Return to Work Date: Apr 17, 2019 Work Restrictions: No Heavy Lifting Patient Instructions: Rotator Cuff Tendinitis Levi Stephens MD Apr 15, 2019 09:47
== END 2019-04-15 09:02 | disposition home or self-care (01) ==
LOC: EMR 08:13
DX: S49.91XA Unspecified injury of right shoulder and upper arm, initial encounter (principal); X58.XXXA Exposure to other specified factors, initial encounter; Y92.9 Unspecified place or not applicable
CPT/HCPCS: 73030; Z7502; 99283